=== PATIENT | male | born 1990 | race American Indian/Alaskan Native ===

== ENCOUNTER 2017-11-28 08:12 | Day surgery (SDC) | payer OTHER ==
[2017-11-28] MEDS ORDERED: (Novolin R) Insulin Human Regular 100 units/ml vial IV ONE (09:18)
[2017-11-28] MEDS ORDERED: (Novolin R) Insulin Human Regular 100 units/ml vial ONE (09:28)
[2017-11-28] MEDS ORDERED: Sodium Chloride 0.9% 500 ML IV ONE (09:29)
[2017-11-28 09:47] VITALS: O2SAT 100
[2017-11-28] MEDS ORDERED: Propofol 10 mg/ml Inj (20 ML) ONE (10:43)
--- NOTE | 2017-11-28 10:48 | CP.SDSHP ---
Same Day Surgery H & P - History Proposed Procedure: EGD Pre-Op Diagnosis: SEE NOTES - Previous Medical/Surgical History Cardiac: Hypertension Pulmonary: Asthma Endocrine/Metabolic: Diabetes Misc: Other Pain: 4.Moderate Pain - Allergies Allergies: Allergies No Known Allergies Allergy (Verified 11/28/17 09:01) - Physical Exam General Appearance: N Vital Signs: Vital Signs 11/28/17 09:37 Temperature 98 F Pulse Rate 77 Respiratory 19 Rate Blood Pressure 148/98 H O2 Sat by Pulse 100 Oximetry Mental Status: Alert & Oriented x3 Neuro: WNL Heart: Other Lungs: Other GI: WNL - {Optional Preform as Required} Breast: WNL Abdomen: Other Rectal: Other Integument: WNL : WNL Ortho: WNL ENT: WNL - Impression Pt. Evaluated Today:Candidate for Anesthesia & Procedure: Yes - Date & Time Time: 10:48 Short Stay Discharge - Short Stay Discharge Admitting Diagnosis/Reason for Visit: DYSPEPSIA Disposition: HOME/ ROUTINE
[2017-11-28] MEDS ORDERED: Belladonna-Phenobarbital PO STA (10:49)
[2017-11-28 11:25] VITALS: TEMP 97.5
[2017-11-28 11:42] VITALS: RESP 12
[2017-11-28 12:50] VITALS: BP 112/75; PULSE 78
== END 2017-11-28 12:20 | disposition home or self-care (01) ==
LOC: C.ENDO 08:12
PROVIDERS: ATTEND Specialist
DX: K21.0 Gastro-esophageal reflux disease with esophagitis (principal); K29.70 Gastritis, unspecified, without bleeding; E11.43 Type 2 diabetes mellitus with diabetic autonomic (poly)neuropathy; K31.84 Gastroparesis; K30 Functional dyspepsia; I10 Essential (primary) hypertension; J45.909 Unspecified asthma, uncomplicated
CPT/HCPCS: 43239; 82948; 88305; 88342; J2001; J2704; J7040